=== PATIENT | male | born 1990 | race Caucasian/White ===

== ENCOUNTER 2018-09-08 08:44 | Outpatient (CLI) | payer OTHER ==
[2018-09-08 13:37] LABS: ALBUMIN 4.3 g/dL (3.2-5.5); ALBUMIN/GLOBULIN RATIO 1.3 (1.0-2.2); BILIRUBIN,TOTAL 0.9 mg/dL (0.2-1.0); CALCIUM 9.4 mg/dL (8.5-10.3); CREATININE 0.8 mg/dL (0.6-1.2); TOTAL PROTEIN 7.6 g/dL (6.7-8.2)
== END 2018-09-08 23:59 | disposition home or self-care (01) ==
LOC: LAB.WCP 08:44
PROVIDERS: ATTEND Family Medicine
DX: K76.0 Fatty (change of) liver, not elsewhere classified (principal)
CPT/HCPCS: 36415; 80053